=== PATIENT | male | born 1950 | race Caucasian/White ===

== ENCOUNTER 2021-09-16 09:21 | Day surgery (SDC) | payer SELFPAY ==
--- NOTE | 2021-08-31 12:46 | EKG12_ITS ---
Test Reason : PREOP Blood Pressure : / mmHG Vent. Rate : 065 BPM Atrial Rate : 065 BPM P-R Int : 172 ms QRS Dur : 100 ms QT Int : 384 ms P-R-T Axes : 013 017 052 degrees QTc Int : 399 ms Normal sinus rhythm Normal ECG Confirmed by CEM SANCHEZ, GERRI ([id number]), field map editor ROCIO JARRELL ([id number]) on 09/01/2021 9:52:49 AM Referred By: Preet Diaz Confirmed By:GERRI PRIEST MD
[2021-08-31 14:31] LABS: Hematocrit 38.8 % (40-54); Hemoglobin 12.8 g/dL (13.0-16.5); Mean Corpuscular Hgb 30.2 pg (27.0-32.0); Mean Corpuscular Volume 91.5 fL (80-94); Mean Platelet Vol. 9.7 fl (6.2-12.0); Platelet Count 202 K/mm3 (150-450); RBC Distribution Width CV 13.3 % (11.6-14.6); Red Blood Count 4.24 M/mm3 (4.6-6.2); White Blood Count 6.1 K/mm3 (4.4-11.0)
[2021-09-16 09:55] VITALS: BP 137/76; PULSE 55; RESP 18; TEMP 36.8; O2SAT 97; BMI 27.4
[2021-09-16] MEDS: Lactated Ringers 1,000 ML 15 ML IV (09:55)
--- NOTE | 2021-09-16 11:30 | PROS_PTH ---
PATIENT: CHAYO DIAL LOC: [facility] [place] U#:[id number] AGE/SX: 71/M ROOM: RE09/16/[address]: Dr. Preet Diaz MD : [id number] BED: DIS: 09/16/2021 SPEC #: [id number] RECD: 09/16/21 14:25 STATUS: REVA PATRICIA #: [id number] JOCE: 09/16/21 11:[address]: Preet Diaz DEPT: SURGICAL PATHOLOGY RECD BY: Regina Childs ENTERED: 09/17/21 08:32 SP TYPE: TURP OTHR DR: Dr. Todd Fischer MD Tissues: Prostate, NOS Procedures: Surgery Specimen Level IV HEADER OPERATION: Cysto, TUR prostate, Olymp[employer] PRE-OP DIAGNOSIS: BPH TISSUE SUBMITTED: Prostate chips MICROSCOPIC DIAGNOSIS Prostate, transurethral resection: Benign nodular hyperplasia, glandular and stromal types. Chronic inflammation with focal acute inflammation. AM:sarah 09/18/2021 MICROSCOPIC DESCRIPTION Slides are reviewed. GROSS DESCRIPTION Received is one container labeled with the patient's name and designated prostate chips. The specimen consists of multiple irregular fragments of pink-sanderson, rubbery, soft tissue that in aggregate weigh 14.7 gm and measure in aggregate 6 x 6 x 2 cm. Piece Maker tissue is submitted in ten cassettes. / SJ:sarah 09/17/21 TC:2 CPT: 78592
[2021-09-16] MEDS: Cefazolin 2 GM in 0.9% Normal Saline 100 ML IV (12:03)
--- NOTE | 2021-09-16 12:03 | PCM.HP.STD ---
HPI - General HPI Narrative CHAYO DIAL, is a 71 M who presents for a TURP has a h/o retention of urine from BPH [facility] Medical History (Updated 08/27/21 @ 08:59 by Ricarda Powers) Gastric reflux Non-smoker Wears dentures Wears glasses Home Medications tamsulosin 0.4 mg PO QHS 08/27/21 [History Last Taken Unknown] ciprofloxacin HCl [Cipro] 500 mg PO BID #14 tab 09/16/21 [Rx Last Taken Unknown] Allergy/AdvReac Type Severity Reaction Status Date / Time No Known Allergies Allergy Verified 09/16/21 09:57 Surgical History (Updated 08/27/21 @ 08:47 by Ricarda Powers) History of right hip replacement Social History Smoking Status: Never smoker Vital Signs Vital Signs Vital Signs: 09/16/21 09:55 Temperature 98.3 F Temperature Source Temporal Pulse Rate 55 L Respiratory Rate 18 Respiratory Pattern Normal Blood Pressure 137/76 H Blood Pressure Mean 96 Blood Pressure Source Monitor Blood Pressure Position Sitting Blood Pressure Location Right Arm Pulse Ox 97 Oxygen Delivery Method Room Air Weight Weight: 97 kg Body Mass Index (BMI) 27.4 Results Lab / Micro Data Result Diagrams: 08/31/21 13:08
--- NOTE | 2021-09-16 12:04 | DCINST_ITS ---
Discharge Instructions Diet Discharge Diet: No restrictions Activity Discharge Activity: May Not Drive (while taking narcotic pain medications.) Dressing / Incision Call your doctor if you observe: Fever of 101 or Higher Catheter: [place]avia to leg bag and [place]avia to large bag Drain: [place] Additional Dressing/Incision Instructions:: remove in 3 days Follow Up Care Please Follow Up With: Preet Diaz MD When: Call [phone] for an appointment Test Results: Test results from this visit will be discussed in further detail at your follow-up appointment, if applicable. Discharge Plan Admission Primary Reason for Your Visit: JED Attending Provider: Preet Diaz Primary Care Provider: Todd Fischer Instructions Patient Instructions: MERLYNP Home Recovery Discharge Orders/Prescriptions Prescriptions: New ciprofloxacin HCl [Cipro] 500 mg tablet 500 mg PO BID Qty: 14 RF: 0 Continued tamsulosin 0.4 mg capsule 0.4 mg PO QHS RF: 0 Referrals / Follow Up: Preet Diaz MD [STAFF PHYSICIAN] - Todd Fischer MD [Primary Care Provider] - Disposition Disposition (needs filled in before D/C Order can be placed): Home, Self Care
[2021-09-16] MEDS: Lactated Ringers 1,000 ML 100 ML IV (13:30)
--- NOTE | 2021-09-16 13:30 | PCM.OPRPT ---
Report of Operation Date of Procedure: 09/16/21 Pre-Operative Diagnosis: bph with retention of urine Post-Operative Diagnosis: same Surgery/Procedure Performed:: turp Description of Surgical Findings:: In the preoperative setting I discussed with the patient how the surgery would be done with expect afterwards. We discussed how a prostate resection is done and we discussed the risk of the surgery including, bleeding, infection, retrograde ejaculation, changes with ejaculation or intercourse,. We discussed the possibility that the resection of the prostate may not alleviate his urinary symptoms. We discussed the small risk of developing scar tissue along the urethral channel and strictures. We also discussed the chance of the prostate could grow back and he may need further surgery or treatment in the future for prostate problems. Patient was taken back to the operating room, timeout procedure was performed, he was identified and marked and placed on the operating room table. He underwent general anesthesia. He was placed in dorsolithotomy position. Penis and testicles were prepped and draped in usual sterile fashion. Went into the bladder using the visual obturator with a resectoscope. Once inside the bladder identified the right and left ureteral orifice. I then identified the prostate and the anatomy of the prostate. I marked out the area of the sphincter and the verumontanum was identified. I then proceeded with the prostate resection first resected the median lobe. And then resected the right lobe of the prostate. Then to resect the left lobe of the prostate. I then resected the apical tissue of the prostate. This was a complete resection of all obstructive tissue. I then made sure that there was no injury to the sphincter or the verumontanum was still intact. At the end of the resection all the chips were Ellik out of the bladder. I then identified the left and right ureteral orifice and these were confirmed to be in good position and effluxing and not injured. The resectoscope was removed, a 22 [place] catheter was placed into the bladder on continuous irrigation. And the urine was fairly light pink color and draining normally. He was taken back to the PACU in good condition. CPT 22817 Surgeon: sisi Type of Anesthesia: General Drains: 20 fr alford Admit VTE Documentation VTE Present on Admission: No VTE Mechan Device Prophylaxis: SCD's VTE Pharm Prophylaxis ordered?: No
[2021-09-16 13:42] VITALS: BP 116/64; BP 137/76; PULSE 57; RESP 16; TEMP 36; O2SAT 99
[2021-09-16 13:48] VITALS: BP 122/71; BP 137/76; PULSE 52; RESP 16; O2SAT 94
[2021-09-16 14:00] VITALS: BP 131/66; BP 137/76; PULSE 53; RESP 16; O2SAT 96
[2021-09-16 14:33] VITALS: BP 123/71; BP 137/76; PULSE 52; RESP 16; TEMP 36.2; O2SAT 97
[2021-09-16 15:45] VITALS: BP 137/76; BP 154/83; PULSE 52; RESP 16; TEMP 36.2; O2SAT 100
== END 2021-09-16 16:40 | disposition home or self-care (01) ==
LOC: SDC 09:26 → AC 09:27
PROVIDERS: Anesthesiology; PCP Family Medicine; Referring Provider Urology; Visit Provider Urology
PROC: (CPT 52601; principal; 2021-09-16 11:20)
DX: N40.1 Benign prostatic hyperplasia with lower urinary tract symptoms (principal); R33.8 Other retention of urine; Z79.899 Other long term (current) drug therapy
CPT/HCPCS: 52601; 36415; 85027; 87426; 88305; 93005; C9803; J7120; J2405

== ENCOUNTER → 2024-06-05 | Outpatient (CLI) | payer SELFPAY | END | disposition home or self-care (01) | LOC: LABSPEC 16:48 | PROVIDERS: PCP Family Medicine; Referring Provider Nurse Practitioner; Visit Provider Nurse Practitioner | DX: R30.0 Dysuria (principal) | CPT/HCPCS: 87086; 87088; 87186 ==

== ENCOUNTER → 2024-07-19 | Outpatient (CLI) | payer SELFPAY | END | disposition home or self-care (01) | PROVIDERS: PCP Family Medicine; Referring Provider Urology; Visit Provider Urology | DX: R30.0 Dysuria (principal) | CPT/HCPCS: 87077; 87086; 87088; 87186 ==